=== PATIENT | female | born 1980 | race Caucasian/White ===

== ENCOUNTER 2021-03-09 15:54 | Emergency (ER) | payer MEDICAID ==
[~2021-03-09] VITALS: Ht 167.6 cm; Wt 82.1 kg
--- NOTE | ~2021-03-09 | EMS ---
[facility] [address] [place] [address] EMS Patient Care Report Name: DELMAR CHAN Room: [facility]#: [id number] Admission: 03/09/21 Attend Phys: Discharge: 03/09/21 Date of : [birth year] Report #: [id number] THIS REPORT FOR: //name// Report Transmitted: 03/11/2021 18:18 EMS Care Summary [facility] Incident [id number] @ 03/09/2021 15:06 Incident Location [address] [place] [address] Room 12 Patient DELMAR CHAN Female, 40 Years 1980 Patient Address [address] [place] [address] Patient History Seizures,Depression,Anxiety, Patient Allergies Latex allergy,Morphine, Patient Medications Sucralfate, Seroquel, Trazodone, Baclofen, Chief Complaint Seizures Disposition Transported No Lights/[place] Dispatch Reason Convulsions/Seizure Transported To [facility] Narrative Dispatch: [facility] was dispatched for a female patient experiencing seizures and nausea and vomiting. Med 1 copied tones and went en route emergent. [facility] [address] [place] [address] EMS Patient Care Report Name: DELMAR CHAN Room: [facility]#: [id number] Admission: 03/09/21 Attend Phys: Discharge: 03/09/21 Date of : [birth year] Report #: [id number] Chief Complaint: Med 1 arrived on scene to find the patient sitting upright in her chair outside of her residence. Patient states she has been experiencing seizures lasting approx. 3 minutes and has associated nausea and vomiting. Patient states she was postictal for approx. 30 minutes and does not remember having a seizure. History of present illness/ALLISON: Patient states she has a history of seizures but her seizures usually last approx. 45 seconds. Patient states she does not remember having the seizure on 03/09/21 in the morning, but woke up to find herself lying on her bedroom floor. Patient states her partner advised her that she had "stopped breathing all together while her seizure was occurring." Assessment: Airway: Clear, patent, and self maintained. Breathing: Clear, and equal bilaterally. Non labored. Circulation: Skin is pink, warm, and dry. Strong radial pulses. Disability: A&OX4, GCS 15. Exposures: No life threats were found. See "assessments" tab for further. Reason for ambulance: Patient was experiencing seizures, requesting EMS treatment and transport to the ED. Treatments: ALS assessment. 22G IV LAC. 4mg Zofran IV. 324mg ASA. 12 lead EKG showing normal sinus rhythm. Vitals monitored throughout transport. Summary: With the assistance of EMS, the patient was placed onto the cot, secured in place, and placed into the ambulance for transport. The patient was placed onto the monitor and an IV was established. The patient was given 4mg Zofran IV. The patient states she began to have slight chest pain and was given 324mg ASA. Med 1 went en route non emergent to [place]. The patient's overall condition remained the same throughout transport. Radio report was given with no further questions or orders received. Med 1 arrived at destination and the patient was taken to room 3 in the ED where she was able to self ambulate onto the bed. Report was given and signatures and paperwork were received. Med 1 returned back in service. Initial Vitals @15:13P: 78,SpO2: 99, @15:41P: 67,BP: 118/86,SpO2: 98, @15:29P: 74,SpO2: 99, @15:49P: 69,BP: 120/84,SpO2: 98, @15:24P: 78,SpO2: 100, @15:34P: 63,BP: 114/74,SpO2: 98, @15:18P: 76,BP: 121/69,SpO2: 100, [place] [address] EMS Patient Care Report Name: DELMAR CHAN Room: [facility]#: [id number] Admission: 03/09/21 Attend Phys: Discharge: 03/09/21 Date of : 76 Report #: [id number] @15:12P: 78,R: 18,BP: 116/80,GCS: 15,Temp: 98.2F,Glucose: 109,Revised Trauma: 12, Assessments @15:29MENTAL:Person Oriented,Time Oriented,Place Oriented,Event Oriented,SKIN:HEENT:LUNG SOUNDS:ABDOMEN:PELVIS//GI:EXTREMITIES:Capillary Refill: Right Upper: < 2 Sec,PULSE:Radial: 2+ Normal,NEURO:@15:31MENTAL:Person Oriented,Time Oriented,Place Oriented,Event Oriented,SKIN:HEENT:LUNG SOUNDS:ABDOMEN:PELVIS//GI:EXTREMITIES:Capillary Refill: Right Upper: < 2 Sec,PULSE:Radial: 2+ Normal,NEURO: Impression Seizures Procedures @15:13ALS AssessmentResponse: UnchangedSucceeded@15:28Saline Lock 0cc (22 ga) Site: Antecubital-LeftResponse: UnchangedSucceeded@15:29Zofran - 4 Milligrams (mg) - Intravenous (IV)Response: Improved@15:35Aspirin - 324 Milligrams (mg) - OralResponse: Unchanged@15:4112-Lead ECGResponse: UnchangedSucceeded Timeline 15:03,Call Received 15:06,Dispatched 15:07,En Route 15:10,On Scene 15:11,At Patient 15:12,BP: 116/80 M,PULSE: 78,RR: 18 R,SPO2: Ox,ETCO2: ,B,PAIN: ,GCS: 15, 15:13,ALS Assessment,Response: UnchangedSucceeded, 15:13,BP: / M,PULSE: 78,RR: R,SPO2: 99 Ox,ETCO2: ,BG: ,PAIN: ,GCS: , 15:18,BP: 121/69 M,PULSE: 76,RR: R,SPO2: 100 Ox,ETCO2: ,BG: ,PAIN: ,GCS: , 15:20,Depart Scene 15:24,BP: / M,PULSE: 78,RR: R,SPO2: 100 Ox,ETCO2: ,BG: ,PAIN: ,GCS: , 15:28,Saline Lock 0cc 22 ga Site: Antecubital-Left,Response: UnchangedSucceeded, 15:29,Zofran - 4 Milligrams (mg) - Intravenous (IV),Response: Improved 15:29,BP: / M,PULSE: 74,RR: R,SPO2: 99 Ox,ETCO2: ,BG: ,PAIN: ,GCS: , 15:34,BP: 114/74 M,PULSE: 63,RR: R,SPO2: 98 Ox,ETCO2: ,BG: ,PAIN: ,GCS: , 15:35,Aspirin - 324 Milligrams (mg) - Oral,Response: Unchanged 15:41,12-Lead ECG,Response: UnchangedSucceeded, 15:41,BP: 118/86 M,PULSE: 67,RR: R,SPO2: 98 Ox,ETCO2: ,BG: ,PAIN: ,GCS: , 15:49,BP: 120/84 M,PULSE: 69,RR: R,SPO2: 98 Ox,ETCO2: ,BG: ,PAIN: ,GCS: , 15:51,At Destination 16:35,Call Closed Disclaimer v1.1 Copyright 2020 [employer] This EMS Care Summary contains data elements from the [place] [address] EMS Patient Care Report Name: DELMAR CHAN Room: [facility]#: [id number] Admission: 03/09/21 Attend Phys: Discharge: 03/09/21 Date of : [birth year] Report #: [id number] (which may be displayed differently). It is designed to provide pertinent information for the following purposes: continuity of care, clinical quality, and state data reporting. The complete legal record is available to ED staff and administrators of the receiving hospital in [facility] Patient Tracker. All data is provided "as is."
[2021-03-09] MEDS ORDERED: PRAZOSIN 1 MG CA1 M1 PO (16:18)
[2021-03-09] MEDS ORDERED: SEROQUEL300 MG PO (16:19)
[2021-03-09] MEDS ORDERED: DEPAKOTE 250MG250 MG PO (16:19)
[2021-03-09] MEDS ORDERED: CLONAZEPAM 0.50.5 M1 PO (16:19)
[2021-03-09] MEDS ORDERED: VIMPAT200 MG PO (16:20)
[2021-03-09] MEDS ORDERED: KEPPRA XR500 MG (16:20)
[2021-03-09] MEDS ORDERED: PROTONIX40 M2 PO (16:21)
[2021-03-09] MEDS ORDERED: SINGULAIR 10 MG10 M1 PO (16:22)
[2021-03-09] MEDS ORDERED: PEPCID20 MG (16:22)
[2021-03-09] MEDS ORDERED: CARAFATE1 GM PO (16:22)
[2021-03-09] MEDS ORDERED: ZYRTEC10 M5 PO (16:22)
[2021-03-09 16:32] LABS: CALCIUM 9.2 mg/dL (8.5-10.1); CREATININE 0.7 mg/dL (0.6-1.3); POTASSIUM 3.4 mmol/L (3.5-5.1)
[2021-03-09 16:36] LABS: ALBUMIN 3.3 g/dL (3.4-5.0); TOTAL BILIRUBIN 0.3 mg/dL (<0.1-1.0); TOTAL PROTEIN 6.7 g/dL (6.4-8.2)
[2021-03-09 17:04] LABS: URINE BILIRUBIN NEGATIVE (Negative); URINE BLOOD NEGATIVE (Negative); URINE CLARITY SL HAZY; URINE COLOR YELLOW; URINE GLUCOSE-RANDOM NEGATIVE (Negative); URINE KETONES 1+ (Negative); URINE LEUKOCYTES NEGATIVE (Negative); URINE NITRITE NEGATIVE (Negative); URINE PROTEIN TRACE (Negative); URINE SPECIFIC GRAVITY 1.025 (1.005-1.030); URINE UROBILINOGEN 0.2 E.U./dl (0.2-1.0)
[2021-03-09 17:20] LABS: AMP/METHAMP Negative (Negative); BARBITURATES Negative (Negative); BENZODIAZEPINES Negative (Negative); COCAINE Negative (Negative); HYALINE CASTS 0-3 Few /LPF (None Seen); METHADONE Negative (Negative); MUCUS >6 Heavy strn/LPF (None Seen); OPIATES Negative (Negative); PCP Negative (Negative); SQUAMOUS >10 Many /LPF (0-3); THC Negative (Negative); URINE WBC 0-5 Rare /HPF (0-5)
[2021-03-09 17:21] LABS: CRYSTALS None Seen /LPF (None Seen); URINE RBC None Seen /HPF (0-2)
[2021-03-09 17:42] VITALS: BP 103/69
--- NOTE | 2021-03-10 11:18 | EKG ---
[place] [address] ELECTROCARDIOGRAM REPORT Name: DELMAR CHAN Room: [facility]#: [id number] Admission: 03/09/21 Attend Phys: Discharge: 03/09/21 Date of : 76 Date of Service: 03/09/21 1624 Report #: [id number] THIS REPORT FOR: //name// [facility] ED Test Date: 2021-03-09 Test Time: 16:24:53 Pat Name: DELMAR CHAN Department: Room: Gender: F [employer] Operator: CD : 1980 Requested By: Stanley Garcia Order Number: [id number] MD: Girish Wagner Measurements Intervals Redig Rate: 61 P: 23 VT: 154 QRS: 20 QRSD: 94 T: 8 QT: 445 QTc: 449 Interpretive Statements Sinus rhythm Nonspecific T abnormalities, anterior leads Baseline wander in lead(s) II,III,aVF No previous ECG available for comparison Electronically Signed On 03-10-2021 11:18:40 CDT by Girish Wagner [email or web address] <ELECTRONICALLY SIGNED> By: Girish Wagner MD, [facility] 03/10/21 1118 1624 1624 Girish Wagner MD, [facility] /EPI
== END 2021-03-09 17:43 | disposition home or self-care (01) ==
LOC: M.ERS 15:54
PROVIDERS: Emergency Medicine
DX: G40.909 Epilepsy, unspecified, not intractable, without status epilepticus (principal); Z88.5 Allergy status to narcotic agent; Z91.040 Latex allergy status